=== PATIENT | male | born 1965 | race Caucasian/White ===

== ENCOUNTER 2017-10-12 19:16 | Emergency (ER) | payer SELFPAY ==
[~2017-10-12] VITALS: Ht 172.7 cm; Wt 86.6 kg
[2017-10-12 19:18] VITALS: BP 120/78
[2017-10-12] MEDS ORDERED: DEXAMETHASONE 4 MG TABLET PO ONE (21:00)
[2017-10-12] MEDS ORDERED: DEXAMETHASONE 4 MG TABLET ONE (21:03)
== END 2017-10-12 21:10 | disposition home or self-care (01) ==
LOC: ED 20:30
DX: J20.8 Acute bronchitis due to other specified organisms (principal); J06.9 Acute upper respiratory infection, unspecified; B34.9 Viral infection, unspecified
CPT/HCPCS: 71046; 87081; 87147; 87880; 99285